=== PATIENT | female | born 1960 | race Native Hawaiian/Other Pacific Islander ===

== ENCOUNTER 2018-05-16 09:09 | Outpatient (CLI) | payer OTHER | END 2018-05-16 21:56 | disposition home or self-care (01) | LOC: RAD 09:09 | DX: C50.919 Malignant neoplasm of unspecified site of unspecified female breast (principal); Z79.899 Other long term (current) drug therapy ==

== ENCOUNTER 2018-07-14 10:20 | Outpatient (CLI) | payer OTHER | END 2018-07-14 20:18 | disposition home or self-care (01) | LOC: MAMMO 10:20 | DX: Z85.3 Personal history of malignant neoplasm of breast (principal) ==

== ENCOUNTER 2019-08-08 08:29 | Outpatient (CLI) | payer OTHER | END 2019-08-08 21:16 | disposition home or self-care (01) | LOC: MAMMO 08:29 | DX: Z12.31 Encounter for screening mammogram for malignant neoplasm of breast (principal) ==

== ENCOUNTER 2020-06-17 14:11 | Outpatient (CLI) | payer OTHER | END 2020-06-17 20:46 | disposition home or self-care (01) | LOC: RAD 14:11 | DX: M54.9 Dorsalgia, unspecified (principal); M85.88 Other specified disorders of bone density and structure, other site; M25.551 Pain in right hip; M25.552 Pain in left hip ==

== ENCOUNTER 2020-07-14 08:33 | Outpatient (CLI) | payer OTHER | END 2020-07-14 22:23 | disposition home or self-care (01) | LOC: CT 08:33 | DX: R10.11 Right upper quadrant pain (principal); R11.0 Nausea; Z85.3 Personal history of malignant neoplasm of breast | CPT/HCPCS: 36415; 82565; 84520; Q9963 ==

== ENCOUNTER 2020-10-09 10:31 | Outpatient (CLI) | payer OTHER | END 2020-10-09 21:23 | disposition home or self-care (01) | LOC: MAMMO 10:31 | PROVIDERS: ATTEND Internal Medicine | DX: Z12.31 Encounter for screening mammogram for malignant neoplasm of breast (principal) ==

== ENCOUNTER 2021-11-27 10:07 | Outpatient (CLI) | payer OTHER | END 2021-11-27 20:01 | disposition home or self-care (01) | LOC: RAD 10:07 | PROVIDERS: ATTEND Internal Medicine | DX: M54.6 Pain in thoracic spine (principal); M54.50 Low back pain, unspecified ==

== ENCOUNTER 2021-11-30 05:21 | Emergency (ER) | payer OTHER ==
[~2021-11-30] VITALS: Ht 165.1 cm; Wt 81.6 kg
[2021-11-30 05:25] VITALS: TEMP 98.8
[2021-11-30] MEDS ORDERED: DULOXETINE HYDR60 MG PO (05:44)
[2021-11-30] MEDS ORDERED: TRAZODONE HYDR100 MG PO (05:45)
[2021-11-30] MEDS ORDERED: TIZANIDINE HYDRO4 M1 PO (05:45)
[2021-11-30] MEDS ORDERED: MELOXICAM7.5 MG (05:45)
[2021-11-30 05:58] LABS: PLATELET COUNT 231 K/uL (152-353)
[2021-11-30 06:19] LABS: POTASSIUM 4.1 mmol/L (3.6-5.2)
[2021-11-30 06:30] VITALS: BP 105/65
== END 2021-11-30 07:44 | disposition home or self-care (01) ==
LOC: ED 05:21
PROVIDERS: Emergency Medicine
DX: N20.0 Calculus of kidney (principal); N28.89 Other specified disorders of kidney and ureter; R82.81 Pyuria
CPT/HCPCS: 36415; 80053; 81000; 85027; 87086; 87088; 96360; 96375; 99284; J1170; J2405

== ENCOUNTER 2022-07-13 08:57 | Outpatient (CLI) | payer OTHER ==
[~2022-07-13 08:57] MED LIST: DULOXETINE HYDR60 MG PO; MELOXICAM7.5 MG; TIZANIDINE HYDRO4 M1 PO; TRAZODONE HYDR100 MG PO
== END 2022-07-13 20:30 | disposition home or self-care (01) ==
LOC: MAMMO 08:57
PROVIDERS: ATTEND Internal Medicine
DX: E04.1 Nontoxic single thyroid nodule (principal); Z12.31 Encounter for screening mammogram for malignant neoplasm of breast; M81.8 Other osteoporosis without current pathological fracture

== ENCOUNTER 2023-06-10 10:52 | Outpatient (CLI) | payer OTHER | END 2023-06-10 19:17 | disposition home or self-care (01) | LOC: RAD 10:52 | PROVIDERS: ATTEND Internal Medicine | DX: R05.3 Chronic cough (principal) ==